=== PATIENT | female | born 1965 | race Hispanic/Latino ===

== ENCOUNTER 2021-02-02 19:43 | Emergency (ER) | payer OTHER ==
[~2021-02-02] VITALS: Ht 165.1 cm; Wt 76.2 kg
[2021-02-02 20:30] VITALS: BP 132/78
[2021-02-02] MEDS ORDERED: HYDROCODONE/ACETAMINOPHEN 5/325 MG TAB PO ONE (22:00)
[2021-02-02] MEDS ORDERED: HYDROCODONE/ACETAMINOPHEN 5/325 MG TAB ONE (22:09)
[2021-02-03] MEDS ORDERED: IBUP-2088 PO (01:49)
== END 2021-02-03 02:10 | disposition home or self-care (01) ==
LOC: EDH 19:43
DX: S16.1XXA Strain of muscle, fascia and tendon at neck level, initial encounter (principal); S20.219A Contusion of unspecified front wall of thorax, initial encounter; V49.49XA Driver injured in collision with other motor vehicles in traffic accident, initial encounter; Y93.89 Activity, other specified; Y92.89 Other specified places as the place of occurrence of the external cause; Y99.8 Other external cause status
CPT/HCPCS: 72040